=== PATIENT | female | born 1945 | race Two or more races ===

== ENCOUNTER 2023-01-27 16:01 | Emergency (ER) | payer BC ==
[~2023-01-27] VITALS: Ht 162.6 cm; Wt 81.6 kg
[2023-01-27] MEDS ORDERED: COZAAR25 MG (16:06)
[2023-01-27] MEDS ORDERED: METFORMIN HCL500 M3 (16:06)
== END 2023-01-27 18:09 | disposition home or self-care (01) ==
LOC: ER 16:01
DX: M12.512 Traumatic arthropathy, left shoulder (principal); W18.39XA Other fall on same level, initial encounter; Y93.01 Activity, walking, marching and hiking; Y92.838 Other recreation area as the place of occurrence of the external cause; Y99.8 Other external cause status; E11.9 Type 2 diabetes mellitus without complications